=== PATIENT | male | born 1985 | race Caucasian/White ===

== ENCOUNTER 2019-12-12 13:41 | Emergency (ER) | payer OTHER ==
[2019-12-12 14:03] VITALS: BMI 27.4
[2019-12-12] MEDS ORDERED: SODIUM CHLORIDE 1,000 ML IV STA (14:10)
[2019-12-12] MEDS ORDERED: KETOROLAC TROMETHAMINE 30 MG/1 ML VIAL IVPUSH ONE (14:10)
--- NOTE | 2019-12-12 14:10 | PDOC ---
Rapid Medical Evaluation Chief Complaint: Pain, Acute Medical Evaluation: Allergies Allergy/AdvReac Type Severity Reaction Status Date / Time No Known Allergies Allergy Verified 12/12/19 14:03 Vital Signs Temp Pulse Resp BP Pulse Ox 98.3 F 85 19 133/91 99 12/12/19 14:01 12/12/19 14:01 12/12/19 14:01 12/12/19 14:01 12/12/19 14:01 12/12/19 14:08 Pt c/o: left flank pain since yesterday without fever or dysuria, hx stent secondary to kidney stones Pt on brief exam: left cva tenderness pt ordered for: urine, labs, ivf, toradol pt to proceed to the ED Discharge Disposition - Diagnosis Left flank pain - Referrals - Patient Instructions - Post Discharge Activity
[2019-12-12] MEDS ORDERED: KETOROLAC TROMETHAMINE 30 MG/1 ML VIAL ONE (15:10)
[2019-12-12 15:28] LABS: PH,URINE 5.5 (5.0-8.0); URINE APPEARANCE Slightly Cloudy; URINE BILIRUBIN Negative (NEGATIVE); URINE COLOR Yellow; URINE GLUCOSE (UA) Negative (NEGATIVE); URINE KETONE Negative (NEGATIVE); URINE LEUK ESTERASE 1+ (NEGATIVE); URINE NITRITE Negative (NEGATIVE); URINE PROTEIN 2+ (NEGATIVE); URINE UROBILINOGEN 0.2 mg/dL (0.2-1.0)
[2019-12-12 15:32] LABS: BASO % 0.6 % (0-2.0); EOS % 2.1 % (0-4.5); HEMATOCRIT 42.1 % (35.4-49); HEMOGLOBIN 13.8 GM/dL (11.7-16.9); LYMPH % 33.3 % (8-40); MCH 29.4 pg (25.7-33.7); MCHC 32.7 g/dl (32.0-35.9); MEAN CELL VOLUME 89.8 fl (80-96); MEAN PLT VOLUME 9.7 fl (7.5-11.1); MONO % 5.8 % (3.8-10.2); NEUT % 58.2 % (42.8-82.8); PLATELET COUNT 348 K/MM3 (134-434); RBC 4.68 M/mm3 (4.00-5.60); RDW 15.2 % (11.9-15.9); WHITE BLOOD COUNT 9.7 K/mm3 (4.0-10.0)
--- NOTE | 2019-12-12 15:38 | PDOC ---
History of Present Illness - General Chief Complaint: Pain, Acute Stated Complaint: LFT SIDE PAIN/STENT Time Seen by Provider: 12/12/19 14:08 - History of Present Illness Initial Comments: 12/12/19 15:35 34 yo M PMH L kidney stone diagnosed in November 2019 reportedly <5 mm, c/b ureteral stent, removal of stent, rupture of ureter, and placement of nephrostomy tube which remains in, presenting with L flank pain. Notes that he was seen in clinic today, where he was informed that he may need a CT scan prior to removal of the nephrostomy tube. Afterwards, developed L flank pain which he states is different from his kidney stone pain, prompting him to come in. Pain is very positional, exacerbated by sitting up and alleviated by standing. Denies CP, SOB, abd pain, fevers/chills, N/V, ARMSTRONG. Past History - Past Medical History Allergies/Adverse Reactions: Allergies Allergy/AdvReac Type Severity Reaction Status Date / Time No Known Allergies Allergy Verified 12/12/19 14:03 COPD: No Kidney Stones: Yes - Psycho Social/Smoking Cessation Hx Smoking History: Never smoked Information on smoking cessation initiated: No Hx Alcohol Use: No Drug/Substance Use Hx: No Review of Systems - Review of Systems Comments:: 12/12/19 15:54 GENERAL/CONSTITUTIONAL: denies fever, chills, diaphoresis, generalized weakness, malaise, loss of appetite, weight change HEAD, EYES, EARS, NOSE AND THROAT: denies rhinorrhea, nasal congestion, throat pain, throat swelling, difficulty swallowing, mouth swelling, ear pain, eye pain, visual changes NEUROLOGIC: denies headache, focal weakness or paresthesias, dizziness, unsteady gait, seizure, mental status changes, bladder or bowel incontinence CARDIOVASCULAR: denies chest pain, syncope, palpitations, irregular heart rate, lightheadedness, peripheral edema RESPIRATORY: denies cough, shortness of breath, dyspnea with exertion, orthopnea, wheezing, stridor, hemoptysis GASTROINTESTINAL: denies abdominal pain, abdominal distension, nausea, vomiting, diarrhea, constipation, melena, hematochezia GENITOURINARY: denies dysuria, frequency, urgency, hesitancy, hematuria, flank pain, genital pain MUSCULOSKELETAL: mild L pevis pain. Denies myalgia, arthralgia, joint swelling, back pain, neck pain SKIN: denies rash, itching, pallor HEMATOLOGIC/IMMUNOLOGIC: denies easy bleeding, easy bruising, lymphadenopathy, frequent infections ENDOCRINE: denies unexplained weight gain, unexplained weight loss, heat intolerance, cold intolerance PSYCHIATRIC: denies anxiety, depression, suicidal or homicidal ideation, hallucinations *Physical Exam - Vital Signs Last Vital Signs Temp Pulse Resp BP Pulse Ox 98.3 F 85 19 133/91 99 12/12/19 14:01 12/12/19 14:01 12/12/19 14:01 12/12/19 14:01 12/12/19 14:01 - Physical Exam 12/12/19 15:55 Gen: well-developed, well-nourished, NAD Neuro: AAOX4, CN II-XII intact, FTN intact, EOMI, PERRLA, 5/5 strength, SILT HEENT: atraumatic, normocephalic, dry mucous membranes Neck: trachea midline, supple CV: regular rate, regular rhythm, no murmurs, rubs, or gallops Pulm: CTA b/l, no wheezing Abd: soft, non-distended, non-tender, L nephrostomy grossly in place MSK: full ROM, intact pulses Extr: no edema, no deformities Skin: warm, dry ED Treatment Course - LABORATORY CBC & Chemistry Diagram: 12/12/19 14:53 12/12/19 14:53 - ADDITIONAL ORDERS Additional order review: Laboratory Results 12/12/19 15:20 Urine Color Yellow Urine Appearance Slightly cloudy Urine pH 5.5 Ur Specific [place] >= 1.030 Urine Protein 2+ H Urine Glucose (UA) Negative Urine Ketones Negative Urine Blood 3+ H Urine Nitrite Negative Urine Bilirubin Negative Urine Urobilinogen 0.2 Ur Leukocyte Esterase 1+ H - RADIOLOGY Radiology Studies Ordered: Category Date Time Status ABDOMEN & PELVIS CT W/O CONTR [CT] Stat CT Scan 12/12/19 15:20 Ordered - Medications Given in the ED: ED Medications Discontinued Medications Generic Name Dose Route Start Last Admin Trade Name Freq PRN Reason Stop Dose Admin Sodium Chloride 1,000 mls @ 1,000 mls/hr 12/12/19 14:10 12/12/19 15:12 Normal Saline - IV 12/12/19 15:09 1,000 mls/hr ASDIR STA Administration Ketorolac Tromethamine 30 mg 12/12/19 14:10 12/12/19 15:12 Toradol Injection - IVPUSH 12/12/19 14:11 30 mg ONCE ONE Administration Medical Decision Making - Medical Decision Making 12/12/19 15:56 Low concern for ongoing stent issue, however considering recent history, will get CT abd/pelvis w/o contrast. - toradol - IV fluids - UA/UC 12/12/19 15:58 UA with 3+ blood and 1+ WBCs, no bacteria. 12/12/19 16:56 CT scan with well-seated nephrostomy tube, no acute pathology. Will contact Dr. Abebe Lyle's office for recommendations. 12/12/19 18:[address] Abebe Lyle's office placed [id number]. 12/12/19 18:30 Third call placed to Dr. Lyle. 12/12/19 18:42 Dr. Lyle states that he will see the patient Monday at 1200, where he will get a retrograde urethrogram and, if everything is normal, he will get the nephrostomy tube removed. He has to keep the tube in place until then. Will dc with close outpatient follow up. Discharge - Discharge Information Problems reviewed: Yes Clinical Impression/Diagnosis: Left flank pain Condition: Stable Disposition: HOME - Admission No - Follow up/Referral Referrals: Deepthi Sweeney [Primary Care Provider] - - Patient Discharge Instructions Patient Printed Discharge Instructions: DI for Nephrostomy, DI for Flank Pain Additional Instructions: You were seen with L flank pain. Your urine showed blood and inflammatory markers, but did not show any signs of an infection. Your CT scan also confirmed that your nephrostomy tube is in the correct location. Please follow up with your Monday appointment with Dr. Lyle at 1200 pm. Return to the ED if you develop new or worsening symptoms. - Post Discharge Activity
[2019-12-12 15:50] LABS: URINE RBC 20-25 /hpf (0-4)
[2019-12-12 15:51] LABS: EPI CELLS 0-5 /HPF (0-5/HPF)
[2019-12-12 15:53] LABS: PLATELET ESTIMATE ADEQUATE
[2019-12-12 16:02] LABS: ALBUMIN 4.2 g/dl (3.4-5.0); BILIRUBIN,TOTAL 0.4 mg/dL (0.2-1); BLOOD UREA NITROGEN 8.1 mg/dL (7-18); CALCIUM 9.7 mg/dL (8.5-10.1); CREATININE 0.7 mg/dL (0.55-1.3)
[2019-12-12 18:20] VITALS: BP 116/73; PULSE 88; TEMP 98.9
== END 2019-12-12 19:11 | disposition home or self-care (01) ==
LOC: JER 13:41 → JERFT 13:41 → JER 19:11
PROC: 3E0333Z Introduction of Anti-inflammatory into Peripheral Vein, Percutaneous Approach (ICD-10-PCS; principal; 2019-12-12)
DX: R10.32 Left lower quadrant pain (principal); Z93.6 Other artificial openings of urinary tract status
CPT/HCPCS: 36415; 74176-TC; 80053; 81003; 85025; 87086; 99284-25; J7030

== ENCOUNTER 2020-04-15 12:16 | Day surgery (SDC) | payer OTHER ==
[2020-04-02 15:13] VITALS: BMI 29.1
[2020-04-15] MEDS ORDERED: KETOROLAC TROMETHAMINE 30 MG/1 ML VIAL ONE (13:24)
[2020-04-15] MEDS ORDERED: ceFAZolin SODIUM 1 GM VIAL ONE (13:24)
[2020-04-15] MEDS ORDERED: ONDANSETRON 4 MG/2 ML VIAL ONE (13:24)
[2020-04-15] MEDS ORDERED: DEXAMETHASONE SOD PHOSPHATE 4 MG/1 ML VIAL ONE (13:24)
[2020-04-15] MEDS ORDERED: SODIUM CHLORIDE 0.9% P/F 10 ML VIAL IJ ONE (13:24)
[2020-04-15] MEDS ORDERED: MIDAZOLAM HCL 2 MG/2 ML SINGLE DOSE VIAL ONE ×3 (13:25→14:19)
[2020-04-15] MEDS ORDERED: PROPOFOL 20 ML ONE (13:25)
[2020-04-15] MEDS ORDERED: ROPIVACAINE HCL 0.5% 30ML VIAL ONE (14:19)
[2020-04-15] MEDS ORDERED: BUPIVACAINE HCL/PF 0.5% (5MG/ML) 10 ML VIAL ONE (15:36)
[2020-04-15] MEDS ORDERED: ONDANSETRON 4 MG/2 ML VIAL IVPUSH PRN (17:03)
[2020-04-15] MEDS ORDERED: oxyCODONE HCL 5 MG TABLET PO PRN ×2 (17:03)
[2020-04-15] MEDS ORDERED: LACTATED RINGERS SOLUTION 1,000 ML IV SCH (17:15)
[2020-04-15 17:34] VITALS: TEMP 97.6
[2020-04-15 18:23] VITALS: BP 132/76; PULSE 78
--- NOTE | 2020-04-15 21:39 | OP ---
DATE OF OPERATION: 04/15/2020 PREOPERATIVE DIAGNOSIS: Left distal radius intraarticular fracture, displaced. POSTOPERATIVE DIAGNOSIS: Left distal radius intraarticular fracture, displaced. OPERATIVE PROCEDURE: 1. Open reduction and internal fixation of left comminuted, intraarticular, displaced distal radius fracture with internal fixation of 3 or more fragments. 2. Left brachial radialis tenotomy. SURGEON: Neal Colon MD LAB TECHNOLOGIST: LEOBARDO Bailey ANESTHESIA: Regional and general. COMPLICATIONS: None. ESTIMATED BLOOD LOSS: Minimal. INDICATIONS FOR PROCEDURE: The patient is a 35-year-old male who presented to me on delayed basis with the above findings. He was scheduled for surgery last week, but had a personal emergency and canceled the surgery and rescheduled for today. Risks, benefits, and alternatives were discussed with him at length, and proper informed consent was obtained. DESCRIPTION OF PROCEDURE: After proper identification of patient and correct operative site, patient was brought to the operating room and placed supine on the operating table. All prominences were well padded. General and regional anesthesia was given. Left upper extremity was prepped and draped in usual sterile fashion. A well-padded tourniquet was placed with a sterile prep. Esmarch bandage was used to exsanguinate the left upper extremity. Tourniquet was inflated to 250 mmHg. A modified volar radial approach was taken to the distal radius. Incision was taken sharply through the skin just radial to the radial artery. Incision was taken sharply through the skin with blunt and sharp dissection through subcutaneous tissues. The first dorsal compartment was opened. Brachial radialis tenotomy was necessary to mobilize the fracture fragments. The fracture fragment was debrided and then reduced into a satisfactory position and held with a K-wire where x-ray was taken, showing proper reduction. An Arthrex radial styloid plate was then placed with distal locking screws and proximal non-locking screws which provided secure, stable, satisfactory fixation and reduction of the fracture. Wrist was taken through range of motion. There was no instability of the repair. Under live fluoroscopy and direct visualization, the distal radioulnar joint was stressed and found to be stable as was the scapholunate interval. Mild widening of the scapholunate interval was seen on x-ray, but clinically, there was no evidence of instability. It was decided at this point to allow this injury to heal and regain his motion and assess his function and clinical stability prior to engaging in any further treatment if needed. Wound was irrigated with copious amounts of normal saline. The brachioradialis was repaired in the length and fashion over the plate and deep to the first dorsal compartment. Skin was repaired in layers using 4-0 Vicryl and 4-0 Monocryl. Steri-Strips, sterile dressing, and a splint were placed. Patient was reversed from anesthesia, brought to Recovery in stable condition. He tolerated the procedure well. Angel Wei, the branch assistant, was integral throughout the procedure. This procedure could not have been performed without a skilled operative assessment. He was critical in holding reduction while plate was placed. NEAL COLON M.D. [id number]
== END 2020-04-15 18:10 | disposition home or self-care (01) ==
LOC: FASU 12:16
PROVIDERS: ATTEND Orthopaedic Surgery Hand Surgery
PROC: 0LN60ZZ Release Left Lower Arm and Wrist Tendon, Open Approach (ICD-10-PCS; 2020-04-15)
PROC: 0PSJ04Z Reposition Left Radius with Internal Fixation Device, Open Approach (ICD-10-PCS; principal; 2020-04-15 15:20)
DX: S52.532A Colles' fracture of left radius, initial encounter for closed fracture (principal); X58.XXXA Exposure to other specified factors, initial encounter; Y93.9 Activity, unspecified; Y92.9 Unspecified place or not applicable
CPT/HCPCS: 73110-TC-LT-FY; 94760